=== PATIENT | male | born 1980 | race Caucasian/White ===

== ENCOUNTER 2016-12-01 07:07 | Inpatient (IN) ==
[2016-12-01] MEDS ORDERED: NALOXONE 0.4 MG/ML VIAL ONE (07:35)
[2016-12-01] MEDS ORDERED: FLUMAZENIL 0.5 MG/5 ML VIAL IV ONE (07:36)
[2016-12-01] MEDS ORDERED: SODIUM CHLORIDE 0.9% 1,000 ML IV STA ×2 (07:42→10:21)
[2016-12-01] MEDS ORDERED: NALOXONE 0.4 MG/ML VIAL IV STA (07:44)
[2016-12-01] MEDS ORDERED: FLUMAZENIL 1 MG/10 ML VIAL IV ONE (07:44)
[2016-12-01 07:52] LABS: Basophils # 0.1 10*3/uL (0.0-0.2); Basophils % 1.3 % (0.0-0.8); Eosinophils # 0.2 10*3/uL (0.0-0.87); Eosinophils % 3.5 % (0.00-10.9); Hematocrit 41.2 VOL% (42.0-52.0); Hemoglobin 13.8 GM/DL (14.0-18.0); Immature Granulocytes % 0.3 %; Immature Granulocytes Absolute 0.02 #; Lymphocytes # 2.8 10*3/uL (1.4-4.0); Lymphocytes % 44.7 % (21.2-54.2); Mean Corpuscular HGB Conc 33.5 GM/DL (32-36); Mean Corpuscular Hemoglobin 30 PG (27-34); Mean Corpuscular Volume 90.4 FL (87-102); Mean Platelet Volume 9.6 FL (9.6-12.0); Monocytes # 0.8 10*3/uL (0.11-0.8); Monocytes % 12.1 % (1.7-12.7); Neutrophils # 2.4 10*3/uL (1.4-7.4); Neutrophils % 38.1 % (38.7-73.9); Platelet Count 305 T/CUMM (130-400); Red Blood Count 4.56 MC/CUMM (3.8-5.5); Red Cell Distribution Width 13.8 % (9.3-17.3); White Blood Count 6.3 T/CUMM (4-12)
--- NOTE | 2016-12-01 08:05 | CT Report ---
History: Decreased level of consciousness Date: 12/01/2016 Study: CT head without contrast Comparison exam: July 01, [address] sections were obtained through the brain without contrast. The ventricles are midline in position without evidence of hydrocephalus. There is no mass or area of parenchymal hemorrhage. There is no gross CT evidence of acute cortical stroke. There is no extra-axial hematoma. The sinuses are generally clear. There is no acute skull fracture. There is remote fracture deformity of the right zygomatic arch as before. Impression: No acute intracranial process. No significant interval change This CT exam was performed using one or more the following dose reduction techniques: Automated exposure control, adjustment of the MA and/or KV according to patient size, or use of iterative reconstruction technique. PROCEDURE INTERPRETED AT [facility] DEPARTMENT OF RADIOLOGY Final Report Signed by: Dr. Lena Chavez
[2016-12-01 08:19] LABS: Eosinophils 7 % (0-10); Hypochromasia 1+; Lymphocytes 42 % (20-55); Microcytosis Slight; Segmented Neutrophils 43 % (50-85); Total Cells Counted 100
[2016-12-01 08:20] LABS: Platelet Estimate Normal
[2016-12-01 08:21] LABS: Alanine Aminotransferase 41 U/L (16-61); Albumin 3.6 G/DL (3.4-5.0); Alkaline Phosphatase 87 U/L (45-117); Aspartate Amino Transferase 42 U/L (0-37); Bilirubin,Total < 0.39 MG/DL (0.2-1.0); Blood Urea Nitrogen 11 MG/DL (7-18); Calcium 8.6 MG/DL (8.5-10.1); Glucose 78 MG/DL (74-106); Osmolality,Calculated 287.6 MOS/KG (273-304); Potassium 4.3 MMOL/L (3.5-5.1); Sodium 146 MMOL/L (136-145); Total Protein 6.5 G/DL (6.4-8.3)
--- NOTE | 2016-12-01 08:29 | EKG Report ---
Stationary ECG Study [facility] ER Test Date: 12/01/2016 8:11:54 AM Pat Name: PORTIA WEISS Department: Room: Gender: M Director Mission: : 1980 Requested by: Juan Jose Broderick Order Number: [id number] Reading MD: SHARONDA KIM Intervals [place] Rate: 73 P: 52 ND: 149 QRS: 82 QRSD: 88 T: 72 QT: 385 QTc: 411 Interpretive Statements SINUS RHYTHM ST ELEVATION, PROBABLY EARLY REPOLARIZATION MODERATE ST DEPRESSION Electronically Signed On 12-05-16 06:24:15 CDT by SHARONDA KIM [email or web address]
[2016-12-01 08:32] LABS: Lactic Acid 1.1 MMOL/L (0.4-2.0)
[2016-12-01 08:39] LABS: Barbiturates Screen,Urine Positive (Negative); Benzodiazepines Screen,Urine Negative (Negative); Cannabinoid Screen,Urine Positive (Negative); Opiate Screen,Urine Negative (Negative); Phencyclidine Screen,Urine Negative (Negative)
--- NOTE | 2016-12-01 08:50 | Emergency Department Note ---
Yang Osorio Rolonda, am scribing for, and in the presence of, Juan Jose Toledo MD 08:01. Tre Osorio Phillip K, MD, personally performed the services described in this documentation, ascribed by Nathan Soria in my presence, and it is both accurate and complete 850 . 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 Pt has a PMHx of Sz and Anxiety disorder. Nurses states that pt was behind on his Phenobarbital which he takes for Sz and was trying to catch up on the missed doses. Multiple empty bottles were noted on the scene. Pt was unresponsive during exam. No other history available. Onset (ago): minute(s) Consistency: constant Severity: severe Severity scale (1-10): 10 Allergies/Adverse Reactions: Allergies Allergy/AdvReac Type Severity Reaction Status Date / Time No Known Allergies Allergy Verified 11/09/16 04:23 Home Medications: Home Medications Medication Instructions Recorded Confirmed Type Citalopram [CeleXA] 20 mg PO DAILY 11/09/16 11/22/16 History HYDROcodone/ACETAMIN 5-325 [[place] 1 tablet PO BID 11/09/16 11/22/16 History 5-325] diazePAM [Diazepam] 2 mg PO BID 11/09/16 11/22/16 History PHENobarbital [Phenobarbital] 64.8 mg PO TID #90 tablet 11/22/16 12/01/16 Rx Review of System - Review of System ROS unobtainable: due to mental status Medical,Surgical,& Family Hx - Medical History Psychological: History of: Anxiety Disorders Neurology: History of: Seizures - Social History Smoking Status: Current every day smoker Exam Vital Signs: Vital Signs Temperature 98.6 F 12/02/16 04:00 Pulse Rate 76 12/02/16 06:00 Respiratory Rate 16 12/02/16 06:00 Blood Pressure 100/63 12/02/16 06:00 O2 Sat by Pulse Oximetry 99 12/02/16 06:00 - General Exam limited due to: ALOC General appearance: lethargic - Head Head exam: Present: atraumatic - Eye Eye exam: Present: normal appearance. Absent: PERRL (Pinpoint pupils.) - ENT ENT exam: Present: normal exam - Neck Neck exam: Present: normal inspection - Chest Chest inspection: Present: normal inspection - Respiratory Respiratory exam: Present: normal lung sounds bilaterally. Absent: rales, respiratory distress - Cardiovascular Cardiovascular exam: Present: regular rate, normal rhythm, normal heart sounds - Abdominal Exam Abdominal exam: Present: soft, normal bowel sounds. Absent: tenderness - Rectal Exam Rectal exam: Present: deferred - Extremities Exam Extremities exam: Present: normal inspection - Back Exam Back exam: Present: normal inspection - Neurological Exam Neurological exam: Absent: alert - Psychiatric Psychiatric exam: Present: depressed - Skin Skin exam: Present: warm, dry Course Course Narrative: Patient was given Narcan and Romazicon on arrival to the ED without any improvement in his lethargy. He was also given a liter of fluids and only a second liter of fluids at the present time. Patient will be admitted to the hospitalist. Patient's phenobarbital level is extremely elevated. Results - Labs CBC & BMP: 12/02/16 03:23 12/02/16 03:23 Lab Results: I have reviewed the patients labs Labs: Laboratory Tests 12/01/16 07:43 WBC 6.3 RBC 4.56 Hgb 13.8 L Hct 41.2 L Neut % (Auto) 38.1 L Baso % (Auto) 1.3 H Laboratory Tests 12/01/16 12/01/16 12/01/16 07:43 07:43 07:43 Total Counted 100 Segmented Neutrophils 43 L Basophils 1.0 H Sodium 146 H Potassium 4.3 Chloride 111 H Carbon Dioxide 33 H BUN 11 GFR Calculation 91 Glucose 78 AST 42 H Ammonia Urine Opiates Screen Acetaminophen < 2.0 L Ur Barbiturates Screen Ur Phencyclidine Scrn U Amphetamine/Methamph Phenobarbital U Benzodiazepines Scrn U Cocaine Metab Screen U Cannabinoids Screen Serum Alcohol < 15 L 12/01/16 12/01/16 12/01/16 07:43 07:43 07:43 Total Counted Segmented Neutrophils Basophils Sodium Potassium Chloride Carbon Dioxide BUN GFR Calculation Glucose AST Ammonia 43 H Urine Opiates Screen Negative Acetaminophen Ur Barbiturates Screen Positive H Ur Phencyclidine Scrn Negative U Amphetamine/Methamph Positive H Phenobarbital 101.8 H* U Benzodiazepines Scrn Negative U Cocaine Metab Screen Negative U Cannabinoids Screen Positive H Serum Alcohol - Diagnostic Findings Procedure: CT: report reviewed by me (Head/Brain: No acute intracranial process. No significant interval change.) Disposition Clinical Impression: Phenobarbital overdose of undetermined intent Case discussed with: patient Disposition: Still a Patient Condition: Critical
--- NOTE | 2016-12-01 09:24 | Hospitalist History & Physical ---
Assessment and Plan (1) Phenobarbital overdose of undetermined intent Status: Acute Assessment and plan: Admit to ICU. Phenobarb level 101.8. Pt given narcan and romazicon in the ED. Drug screen also positive for cannabinoids and meth. UA pending. Give IVF hydration. Consult neuro. Monitor closely. Current Visit: Yes (2) Seizure disorder Status: Acute Assessment and plan: Admit to ICU. Consult neuro. Current Visit: Yes (3) Anxiety Status: Acute Current Visit: Yes History of Present Illness Chief complaint: overdose History of present illness: Mr. De La Rosa is a 36 year old white male patient with a history of seizures, drug abuse, and anxiety disorder who reports to the ED via EMS for further evaluation of phenobarbital overdose with an onset minutes prior to arrival. Patient was recently seen in ED on 11/22 for treatment of seizures. At that time , patient reported being out of his medication for one week. He was prescribed 90 tablets. Per ER nurse, today patient was found on the side of the road in his car very lethargic. Multiple empty bottles were noted on the scene. It is unknown whether patient meant to take multiple pills or whether patient was medicating to make up for previous doses and accidentally overdose. There was another person at the scene, but the person is not present in the ED. Notable labs obtained in the ED reveal a phenobarbital level of 101.8 and ammonia of 42. Head CT is negative. Pt is unresponsive during the examination therefore further history is unable to be obtained. Pt's case has been discussed with ER physician Dr. Toledo and hospitalist Dr. Medina. Pt has been accepted onto our service and will be admitted to the ICU for further evaluation. Home meds have been reviewed but they are unable to be reconciled at this point. Home Medications Medication Instructions Recorded Confirmed Type Citalopram [CeleXA] 20 mg PO DAILY 11/09/16 11/22/16 History HYDROcodone/ACETAMIN 5-325 [[place] 1 tablet PO BID 11/09/16 11/22/16 History 5-325] PHENobarbital [Phenobarbital] 64.8 mg PO TID 11/09/16 11/22/16 History diazePAM [Diazepam] 2 mg PO BID 11/09/16 11/22/16 History PHENobarbital [Phenobarbital] 64.8 mg PO TID #90 tablet 11/22/16 Rx Allergies Allergy/AdvReac Type Severity Reaction Status Date / Time No Known Allergies Allergy Verified 11/09/16 04:23 Medical,Surgical,& Family Hx - Medical History Psychological: History of: Anxiety Disorders Neurology: History of: Seizures - Social History Smoking Status: Current every day smoker Frequency of Alcohol Use: None Type of Drug Use: Marijuana (positive tox screen), Methamphetamine (positive tox screen) Marital Status: Unknown Functional capacity: independent ambulation ROS unobtainable: due to mental status Exam - Constitutional Vitals: Period Temp Pulse Resp BP Sys/Bolivar Pulse Ox Last 24 Hr 97.0 F-97.0 F 69-76 20-20 90-104/60-66 97-100 General appearance: normal weight, no acute distress - Head Head exam: Present: normal inspection, normocephalic - Eye Eye exam: Absent: EOMI Pupils: Absent: RE - Respiratory Respiratory exam: Present: clear to auscultation bilaterally. Absent: wheezes - Cardiovascular Cardiovascular exam: Present: regular rate and rhythm - GI/Abdominal GI/Abdominal exam: Present: normal bowel sounds, soft - Extremities Exam Extremities exam: Present: normal capillary refill. Absent: edema - Neurological Exam Neurological exam: Present: altered, other (pt is very lethargic. unresponsive even to painful stimuli. unable to exam motor strength) - Psychiatric Psychiatric exam: Present: other (unable to assess) - Skin Skin exam: Present: normal color, warm, dry Results - Labs CBC & BMP: 12/01/16 07:43 12/01/16 07:43 Lab Results: I have reviewed the past 24 hour labs
[2016-12-01] MEDS ORDERED: ONDANSETRON 4 MG/2 ML VIAL IV PRN (10:21)
[2016-12-01] MEDS ORDERED: ALBUTEROL 2.5 MG/3 ML NEB RESP TX PRN (10:21)
[2016-12-01 11:04] LABS: ABG Base Excess -1.8 MMOL/L (-2.5-2.5); ABG HCO3 25.8 MMOL/L (20-26); ABG Oxygen Saturation 95.2 % (95-100); ABG PCO2 55.7 MM HG (35-48); ABG PH 7.284 (7.35-7.45); ABG PO2 85.9 MM HG (80-95); ABG TCO2 27.5 MMOL/L (23-27)
[2016-12-01 11:05] LABS: Allen Test Positive
[2016-12-01] MEDS: ENOXAPARIN 40 MG/0.4 ML SYRINGE SUBCUT SCH (11:49)
[2016-12-01] MEDS: SODIUM CHLORIDE 0.9% 1,000 ML IV SCH ×2 (11:51→19:56)
--- NOTE | 2016-12-01 14:02 | Neurology Consult Note ---
History of Present Illness History of present illness: 36 years old right-handed white gentleman with a history of drug abuse, seizures , liver disorder admitted the hospital with phenobarbital drug overdose. Patient is unable to provide me any history. No family is available at this time. History basically obtained from the chart. He was out of his medications a week ago and he showed up in the ER for the prescription. A prescription of 90 tablets was given to him. He had a history of suicide attempt in the past. Yesterday patient was found there was side in his car very lethargic. Multiple empty bottles were noted on the scene. It is not clear whether he meant to take multiple pills or whether the patient was medicating to make up for previous doses and after the overdose. However his urine is positive for meth and cannabinoids as well along with barbiturates. Phenobarbital level was 101.6. At the present time he is lethargic and sleeping. He is moving extremities spontaneously. It is not clear who diagnosed him with seizure disorder and who prescribes phenobarbital to him. CT of the head is unremarkable. Home Medications Medication Instructions Recorded Confirmed Type Citalopram [CeleXA] 20 mg PO DAILY 11/09/16 11/22/16 History HYDROcodone/ACETAMIN 5-325 [[place] 1 tablet PO BID 11/09/16 11/22/16 History 5-325] diazePAM [Diazepam] 2 mg PO BID 11/09/16 11/22/16 History PHENobarbital [Phenobarbital] 64.8 mg PO TID #90 tablet 11/22/16 12/01/16 Rx Allergies Allergy/AdvReac Type Severity Reaction Status Date / Time No Known Allergies Allergy Verified 11/09/16 04:23 12 point system: reviewed and no additional remarkable complaints except as stated Medical,Surgical,& Family Hx - Medical History Psychological: History of: Anxiety Disorders Neurology: History of: Seizures - Social History Smoking Status: Current every day smoker Frequency of Alcohol Use: None Type of Drug Use: Marijuana (positive tox screen), Methamphetamine (positive tox screen) Exam - Constitutional Vitals: Period Temp Pulse Resp BP Sys/Bolivar Pulse Ox Last 24 Hr 96.9 F-97.1 F 67-79 12-20 79-108/53-70 94-100 Exam: GENERAL: Patient is in no acute distress. NECK: Neck is supple. There is no JVD. No carotid bruits present. No thyroid masses. CVS: First and second heart sounds are normal. There is no S3 present. Regular rate and rhythm. RESPIRATORY: Lungs are clear to auscultation without any rales or rhonchi. ABDOMEN: Soft and non-tender. Bowel sounds are present. There is no hepatosplenomegaly. EXT: There is no palpable edema. Peripheral pulses are present. Skin: No rashes Central Nervous system: General: Obtunded/lethargic Speech: None Comprehension: None Facial expressions: Normal Cranial Nerves: Pupils are small but reactive. Doll's head eye movements are positive. No facial asymmetry seen. Motor: Bulk and Tone is normal. Strength symmetrical and moving extremities a spontaneous Sensory: Unreliable Reflexes: 1+ and symmetrical Cerebellar function: Cannot be tested Toes: Equivocal Gait: Cannot be tested Results - Labs CBC & BMP: 12/01/16 07:43 12/01/16 07:43 Assessment and Plan (1) Phenobarbital overdose of undetermined intent Status: Acute Assessment and plan: Agreed to hold off the phenobarbital Watch him closely with O2 sats Current Visit: Yes (2) Seizure disorder Status: Acute Assessment and plan: Hold off any AEDs at this time EEG Thanks for the consult Current Visit: Yes
[2016-12-02] MEDS: SODIUM CHLORIDE 0.9% 1,000 ML IV SCH ×2 (03:56→23:49)
[2016-12-02 04:16] LABS: Basophils # 0.1 10*3/uL (0.0-0.2); Basophils % 0.5 % (0.0-0.8); Eosinophils # 0.1 10*3/uL (0.0-0.87); Eosinophils % 1.4 % (0.00-10.9); Hematocrit 38.3 VOL% (42.0-52.0); Immature Granulocytes % 0.5 %; Immature Granulocytes Absolute 0.05 #; Lymphocytes # 2.4 10*3/uL (1.4-4.0); Lymphocytes % 23.9 % (21.2-54.2); Mean Corpuscular HGB Conc 33.9 GM/DL (32-36); Mean Corpuscular Hemoglobin 31 PG (27-34); Mean Platelet Volume 10.4 FL (9.6-12.0); Monocytes # 0.8 10*3/uL (0.11-0.8); Monocytes % 7.6 % (1.7-12.7); Neutrophils # 6.6 10*3/uL (1.4-7.4); Neutrophils % 66.1 % (38.7-73.9); Platelet Count 292 T/CUMM (130-400); Red Blood Count 4.21 MC/CUMM (3.8-5.5); Red Cell Distribution Width 13.9 % (9.3-17.3)
[2016-12-02 04:38] LABS: Lactic Acid 0.7 MMOL/L (0.4-2.0)
[2016-12-02 04:54] LABS: Calcium 7.9 MG/DL (8.5-10.1); Magnesium 1.7 MG/DL (1.8-2.4); Osmolality,Calculated 286.4 MOS/KG (273-304); Risk Ratio 3.39; VLDL CHOLESTEROL 25.6 MG/DL
--- NOTE | 2016-12-02 08:03 | Order Completion Report ---
See report scanned to EMR
--- NOTE | 2016-12-02 10:23 | Hospitalist Progress Note ---
Hospitalist: Subjective Interval history: 36 yo WM drug abuse, seizures, liver disorder admitted the hospital with phenobarbital drug overdose. Initially he was unarousable, but then he woke up later in the evening in ICU and informed the nurse that he intentionally took phenobarbital overdose to commit suicide. Per nursing staff he still drowsy but wakes up to eat his food and goes back to sleep. He is otherwise comfortable Exam - Constitutional Vitals: Period Temp Pulse Resp BP Sys/Bolivar Pulse Ox Last 24 Hr 96.9 F-98.6 F 68-89 12-20 79-114/46-74 94-100 Exam: General: No Acute Distress HEENT: Normocephalic, atraumatic, Extra ocular movements intact Neck: Supple, No JVD Chest: Clear to auscultation B/L CV: S1 + S2 audible without murmur, gallop or rub Abd: soft, NT, Non-distended, BS + Ext: No edema Skin: No purpura, bruising or rash Rheumatologic: No Joint deformities Neurologic: Drowsy but arousable Results - Labs CBC & BMP: 12/02/16 03:23 12/02/16 03:23 - Impressions Assessment and Plan: (1) Suicide attempt with phenobarbital overdose Status: Acute Assessment and plan: Phenobarbital levels are trending down. We have contacted social work msw to place him in inpatient psychiatric facility. He is on 1:1 watch Current Visit: Yes (2) Seizure disorder Status: Acute Assessment and plan: Holding off on AEDs at this time, monitor Current Visit: Yes Transfer to floor with 1:1 watch
[2016-12-02] MEDS: ENOXAPARIN 40 MG/0.4 ML SYRINGE SUBCUT SCH (10:48)
--- NOTE | 2016-12-02 15:01 | Neurology Progress Note ---
Neurology - PN : Subjective Interval history: Patient is much more alert and awake. Following commands. His speech is fluent. No seizures reported. Repeat phenobarb level is 98.4. He tells me that he sees Dr. Mckeon (neurology )in [facility] for seizure care. He tells me that he has tried several different AEDs but all of them give him some weird side effects. The only thing he can handle is phenobarbital. Upon questioning he said that he was trying to kill himself by overdosing on phenobabr. He states he is very depressed and very unhappy with his life. As far his seizure is concerned, he wants to continue only phenobarbital. He does not even want to try any other medications. Exam (Progress Note) - Constitutional Vitals: Period Temp Pulse Resp BP Sys/Bolivar Pulse Ox Last 24 Hr 97.5 F-98.7 F 76-95 12-20 92-114/46-74 94-100 Exam: GENERAL: Patient is in no acute distress. NECK: Neck is supple. There is no JVD. No carotid bruits present. No thyroid masses. CVS: First and second heart sounds are normal. There is no S3 present. Regular rate and rhythm. RESPIRATORY: Lungs are clear to auscultation without any rales or rhonchi. ABDOMEN: Soft and non-tender. Bowel sounds are present. There is no hepatosplenomegaly. EXT: There is no palpable edema. Peripheral pulses are present. Skin: No rashes Central Nervous system: General: Alert, awake and Oriented x 3 Speech: Fluent Comprehension: Intact and normal Facial expressions: Normal Cranial Nerves: CN1/Olfactory: Normal CN II/ Optic: Normal, Visual Nazario unreliable CN III, and : RE & EOMI CN V: Normal & intact CN VII: face is symmetric CNVIII: Normal CN XI/X/XI/XII: Intact and Normal Motor: Bulk and Tone is normal. Strength in the right 5/5 Strength in the left 5/5 Sensory: Grossly intact for all the modalities of PP, LT and temp sense Reflexes: 1+ and symmetrical Cerebellar function: Normal finger to nose and heel to lin testing. Toes: Equivocal Gait: Not tested Results - Labs CBC & BMP: 12/02/16 03:23 12/02/16 03:23 Assessment and Plan (1) Phenobarbital overdose of undetermined intent Status: Acute Assessment and plan: Continue to hold off to phenobarbital We will resume it once levels are therapeutic Current Visit: Yes (2) Seizure disorder Status: Acute Assessment and plan: As above Current Visit: Yes (3) Suicide attempt Status: Acute Assessment and plan: He needs to go to [facility] from here for further evaluation and treatment. Current Visit: Yes
[2016-12-02] MEDS: TAMSULOSIN 0.4 MG CAPSULE PO SCH (20:48)
[2016-12-03 05:16] LABS: Basophils # 0.1 10*3/uL (0.0-0.2); Basophils % 0.8 % (0.0-0.8); Eosinophils # 0.2 10*3/uL (0.0-0.87); Eosinophils % 1.9 % (0.00-10.9); Hematocrit 37.6 VOL% (42.0-52.0); Hemoglobin 12.5 GM/DL (14.0-18.0); Immature Granulocytes % 0.6 %; Immature Granulocytes Absolute 0.05 #; Lymphocytes # 2.8 10*3/uL (1.4-4.0); Lymphocytes % 32.2 % (21.2-54.2); Mean Corpuscular HGB Conc 33.2 GM/DL (32-36); Mean Corpuscular Hemoglobin 30 PG (27-34); Mean Corpuscular Volume 90.4 FL (87-102); Mean Platelet Volume 9.9 FL (9.6-12.0); Monocytes # 0.8 10*3/uL (0.11-0.8); Monocytes % 8.8 % (1.7-12.7); Neutrophils # 4.8 10*3/uL (1.4-7.4); Neutrophils % 55.7 % (38.7-73.9); Platelet Count 261 T/CUMM (130-400); Red Blood Count 4.16 MC/CUMM (3.8-5.5); Red Cell Distribution Width 13.6 % (9.3-17.3); White Blood Count 8.5 T/CUMM (4-12)
[2016-12-03 06:45] LABS: Calcium 8.3 MG/DL (8.5-10.1); Osmolality,Calculated 285.6 MOS/KG (273-304); Potassium 4.1 MMOL/L (3.5-5.1)
[2016-12-03] MEDS: CITALOPRAM 20 MG TABLET PO SCH (08:25)
[2016-12-03] MEDS: ENOXAPARIN 40 MG/0.4 ML SYRINGE SUBCUT SCH (08:25)
--- NOTE | 2016-12-03 09:30 | Neurology Progress Note ---
Neurology - PN : Subjective Interval history: Patient seems to be doing better. No new problems reported. Today's phenobarbital level is pending. [place] has evaluated him Exam (Progress Note) - Constitutional Vitals: Period Temp Pulse Resp BP Sys/Bolivar Pulse Ox Last 24 Hr 96.6 F-98.7 F 73-99 15-22 102-114/54-70 97-100 Exam: GENERAL: Patient is in no acute distress. NECK: Neck is supple. There is no JVD. No carotid bruits present. No thyroid masses. CVS: First and second heart sounds are normal. There is no S3 present. Regular rate and rhythm. RESPIRATORY: Lungs are clear to auscultation without any rales or rhonchi. ABDOMEN: Soft and non-tender. Bowel sounds are present. There is no hepatosplenomegaly. EXT: There is no palpable edema. Peripheral pulses are present. Skin: No rashes Central Nervous system: General: Alert, awake and Oriented x 3 Speech: Fluent Comprehension: Intact and normal Facial expressions: Normal Cranial Nerves: CN1/Olfactory: Normal CN II/ Optic: Normal, Visual Nazario unreliable CN III, and : RE & EOMI CN V: Normal & intact CN VII: face is symmetric CNVIII: Normal CN XI/X/XI/XII: Intact and Normal Motor: Bulk and Tone is normal. Strength in the right 5/5 Strength in the left 5/5 Sensory: Grossly intact for all the modalities of PP, LT and temp sense Reflexes: 1+ and symmetrical Cerebellar function: Normal finger to nose and heel to lin testing. Toes: Equivocal Gait: Not tested Results - Labs CBC & BMP: 12/03/16 04:30 12/03/16 04:30 Assessment and Plan (1) Phenobarbital overdose of undetermined intent Status: Acute Assessment and plan: Continue to hold off to phenobarbital Review phenobarbital once her levels are therapeutic between 15 and 40 Current Visit: Yes (2) Seizure disorder Status: Acute Assessment and plan: As above Current Visit: Yes (3) Suicide attempt Status: Acute Assessment and plan: He needs to go to [facility] from here for further evaluation and treatment. Sign off please call as needed Current Visit: Yes
--- NOTE | 2016-12-03 09:54 | Physician Query Form ---
CLICK EDIT DOCUMENT TO SELECT QUERY ANSWER --> OK --> SIGN Verna Macaky RN, CCDS Certified Clinical Director Of Group Sales W) [phone] (f) [phone] [email or web address] PROVIDERS: Make your selection(s) from the choices in EACH section by typing an "x" and enter comments in the comment section. Please use your independent medical judgment in providing your response. This request does not imply that any particular answer is desired or expected. CLINICAL INDICATORS: (Providers should not edit this section) The medical record indicates that the patient was admitted with OD of Phenobarbital, Suicide attempt, "lethargic", "Unresponsive even to painful stimuli", "Unarousable" and the patient is being referred to [place]. ACUITY: ( x) Acute ( ) Acute on Chronic ( ) Chronic ( ) Clinically unable to determine NATURE: ( ) Delirium due to general medical condition ( ) Dementia ( ) Encephalopathy ( x) Toxic encephalopathy ( ) Metabolic encephalopathy ( ) Unconscious ( ) Transient level of awareness ( ) Comatose ( ) Locked-in State ( ) Persistent Vegetative State ( ) Other, please specify: ( ) Clinically unable to determine Please indicate the underlying cause of the altered mental status (CHECK ALL THAT APPLY): ( ) Baseline dementia ( ) Alzheimer's disease ( ) Parkinson's disease ( ) Lewy body dementia ( ) Acute stroke ( ) Late effect of stroke ( ) Reactive (from emotional stress, psychological trauma) ( x) Due to narcotics/other drugs ( ) Post procedural delirium ( ) Transient ischemic attack ( ) Generalized cerebral edema ( ) Normal pressure hydrocephalus ( ) Psychiatric illness ( ) Other, please specify: ( ) Clinically unable to determine Please indicate if there is an infection, sepsis, dehydration or specific organ failure that is causing the dementia. Be specific with clarifying the relationship between that process and the mental status change. COMMENTS: PLEASE ALSO DOCUMENT RESPONSE IN PROGRESS NOTES AND/OR DISCHARGE SUMMARY Use of terms such as suspected, likely, or probable (associated with a specific diagnosis that is being evaluated, monitored, or treated as if it exists) are acceptable and can be restated in the discharge summary if not ruled out. MTDD
[2016-12-03] MEDS: SODIUM CHLORIDE 0.9% 1,000 ML IV SCH ×3 (15:08→23:09)
--- NOTE | 2016-12-03 17:25 | Hospitalist Progress Note ---
Assessment and Plan (1) Phenobarbital overdose of undetermined intent Status: Acute Assessment and plan: Neurology assisting Continue to hold Current Visit: Yes (2) Seizure disorder Status: Acute Current Visit: Yes (3) Anxiety Status: Acute Current Visit: Yes (4) Suicide attempt Status: Acute Assessment and plan: [facility] Current Visit: Yes Hospitalist: Subjective Interval history: No acute events overnight. Patient feels well today. He is very much amendable to going to [place]. Exam - Constitutional Vitals: Period Temp Pulse Resp BP Sys/Bolivar Pulse Ox Last 24 Hr 96.6 F-98.4 F 70-94 16-22 103-114/57-69 97-99 Results - Labs CBC & BMP: 12/03/16 04:30 12/03/16 04:30
[2016-12-03] MEDS: TAMSULOSIN 0.4 MG CAPSULE PO SCH (21:01)
[2016-12-04] MEDS: ENOXAPARIN 40 MG/0.4 ML SYRINGE SUBCUT SCH (08:20)
[2016-12-04] MEDS: CITALOPRAM 20 MG TABLET PO SCH (08:20)
[2016-12-04] MEDS: SODIUM CHLORIDE 0.9% 1,000 ML IV SCH ×2 (08:23→17:32)
--- NOTE | 2016-12-04 11:02 | Hospitalist Progress Note ---
<Betzy Foote - Last Filed: 12/04/16 10:56> Assessment and Plan (1) Suicide attempt Status: Acute Assessment and plan: [place] has evaluated. Current Visit: Yes (2) Phenobarbital overdose of undetermined intent Status: Acute Assessment and plan: Admit to ICU. Phenobarb level 101.8. Pt given narcan and romazicon in the ED. Drug screen also positive for cannabinoids and meth. UA pending. Give IVF hydration. Consult neuro. Monitor closely. 12/04 Pt. on med surg unit now. Condition much improved. [place] has assessed. Patient is agreeable to receiving help. Neuro has signed off. Continue IVF. Current Visit: Yes (3) Seizure disorder Status: Acute Assessment and plan: Admit to ICU. Consult neuro. 12/04 Neuro has signed off. Pt. has not had any seizure activity. Current Visit: Yes (4) Anxiety Status: Acute Current Visit: Yes Hospitalist: Subjective Interval history: Patient seen and examined this morning with significant other and sitter at bedside. Labs and chart reviewed. Pt. alert and oriented with no complaints. No changes overnight. Pt. feels well and understands that he needs help. He has spoken to someone at [facility]. Phenobarbital level 61.2 today. Neurology has signed off. We will continue to monitor. Exam - Constitutional Vitals: Period Temp Pulse Resp BP Sys/[place] Pulse Ox Last 24 Hr 96.9 F-98.8 F 54-86 18-20 99-126/55-71 95-98 General appearance: normal weight, no acute distress - Head Head exam: Present: normal inspection, normocephalic - Eye Eye exam: Present: EOMI Pupils: Present: RE - ENT ENT exam: Present: normal exam - Neck Neck exam: Present: normal inspection - Respiratory Respiratory exam: Present: clear to auscultation bilaterally. Absent: wheezes - Cardiovascular Cardiovascular exam: Present: regular rate and rhythm - GI/Abdominal GI/Abdominal exam: Present: normal bowel sounds, soft. Absent: tenderness - Extremities Exam Extremities exam: Present: normal inspection, normal capillary refill, full ROM , edema - Neurological Exam Neurological exam: Present: alert, oriented X3 - Psychiatric Psychiatric exam: Present: normal affect, normal mood - Skin Skin exam: Present: normal color, warm, dry Results - Labs CBC & BMP: 12/03/16 04:30 12/03/16 04:30 Lab Results: I have reviewed the past 24 hour labs <Tierney Gillis - Last Filed: 12/04/16 14:27> Assessment and Plan (1) Phenobarbital overdose of undetermined intent Status: Acute Current Visit: Yes (2) Seizure disorder Status: Acute Current Visit: Yes (3) Anxiety Status: Acute Current Visit: Yes (4) Suicide attempt Status: Acute Current Visit: Yes Hospitalist: Subjective Interval history: Patient seen and examined independently of RELEASE OF INFORMATION SPECIALIST Foote, agree with assessment and plan as documented. Phenobarbital level continues to trend down. Exam - Constitutional Vitals: Period Temp Pulse Resp BP Sys/[place]ar Pulse Ox Last 24 Hr 96.9 F-98.8 F 54-86 18-20 99-126/55-71 95-98 Results - Labs CBC & BMP: 12/03/16 04:30 12/03/16 04:30
[2016-12-04] MEDS: TAMSULOSIN 0.4 MG CAPSULE PO SCH (21:20)
[2016-12-04] MEDS: NICOTINE 21 MG/24 HR PATCH TRANSDERM PRN (22:05)
[2016-12-05] MEDS: SODIUM CHLORIDE 0.9% 1,000 ML IV SCH ×2 (07:22→08:57)
[2016-12-05] MEDS: CITALOPRAM 20 MG TABLET PO SCH (08:53)
[2016-12-05] MEDS: ENOXAPARIN 40 MG/0.4 ML SYRINGE SUBCUT SCH (08:53)
--- NOTE | 2016-12-05 15:40 | Hospitalist Progress Note ---
Assessment and Plan (1) Phenobarbital overdose of undetermined intent Status: Acute Assessment and plan: Neurology signed off Phenobarbital level is 48.3 Should be able to restart tomorrow Current Visit: Yes (2) Seizure disorder Status: Acute Current Visit: Yes (3) Anxiety Status: Acute Current Visit: Yes (4) Suicide attempt Status: Acute Assessment and plan: Working on placement Current Visit: Yes Hospitalist: Subjective Interval history: No acute events overnight. Patient without complaints this afternoon. Working on placement to a psych unit. Exam - Constitutional Vitals: Period Temp Pulse Resp BP Sys/[place]ar Pulse Ox Last 24 Hr 97.1 F-97.9 F 68-93 20-22 100-127/55-70 94-98 General appearance: normal weight - Head Head exam: Present: normocephalic, atraumatic - Eye Eye exam: Present: EOMI Pupils: Present: RE - ENT ENT exam: Present: normal exam - Neck Neck exam: Present: normal inspection - Respiratory Respiratory exam: Present: clear to auscultation bilaterally. Absent: rhonchi, wheezes - Cardiovascular Cardiovascular exam: Present: regular rate and rhythm - GI/Abdominal GI/Abdominal exam: Present: normal bowel sounds, soft. Absent: tenderness, rebound - Extremities Exam Extremities exam: Present: normal inspection - Back Exam Back exam: Present: normal inspection - Neurological Exam Neurological exam: Present: alert, oriented X3 - Psychiatric Psychiatric exam: Present: normal affect, normal mood - Skin Skin exam: Present: warm, intact Results - Labs CBC & BMP: 12/03/16 04:30 12/03/16 04:30
[2016-12-05] MEDS: TAMSULOSIN 0.4 MG CAPSULE PO SCH (21:50)
[2016-12-05] MEDS: NICOTINE 21 MG/24 HR PATCH TRANSDERM PRN (21:50)
--- NOTE | 2016-12-06 10:51 | Hospitalist Progress Note ---
<Betzy Foote - Last Filed: 12/06/16 10:48> Assessment and Plan (1) Suicide attempt Status: Acute Assessment and plan: Working on placement to psychiatric facility. Current Visit: Yes (2) Phenobarbital overdose of undetermined intent Status: Acute Assessment and plan: Admit to ICU. Phenobarb level 101.8. Pt given narcan and romazicon in the ED. Drug screen also positive for cannabinoids and meth. UA pending. Give IVF hydration. Consult neuro. Monitor closely. 12/04 Pt. on med surg unit now. Condition much improved. [place] has assessed. Patient is agreeable to receiving help. Neuro has signed off. Continue IVF. 12/06 neurology has signed off. Phenobarbital level is 41.4 today. Recheck level in a.m. should be able to start tomorrow. Current Visit: Yes (3) Seizure disorder Status: Acute Current Visit: Yes (4) Anxiety Status: Acute Current Visit: Yes Hospitalist: Subjective Interval history: Patient seen and examined this morning. Sitter present at the bedside. No acute changes noted overnight. Patient in no apparent distress. We are awaiting placement at a psychiatric facility. Exam - Constitutional Vitals: Period Temp Pulse Resp BP Sys/Bol[place]ar Pulse Ox Last 24 Hr 96.8 F-97.9 F 60-81 17-20 99-126/49-80 93-98 General appearance: normal weight, no acute distress - Head Head exam: Present: normal inspection, normocephalic - Eye Eye exam: Present: EOMI Pupils: Present: RE - Respiratory Respiratory exam: Present: clear to auscultation bilaterally. Absent: wheezes - Cardiovascular Cardiovascular exam: Present: regular rate and rhythm - GI/Abdominal GI/Abdominal exam: Present: normal bowel sounds, soft. Absent: tenderness - Extremities Exam Extremities exam: Present: normal capillary refill, full ROM. Absent: edema - Neurological Exam Neurological exam: Present: alert, oriented X3 - Psychiatric Psychiatric exam: Present: normal affect, normal mood - Skin Skin exam: Present: normal color, warm, dry Results - Labs CBC & BMP: 12/03/16 04:30 12/03/16 04:30 Lab Results: I have reviewed the past 24 hour labs <Tierney Gillis - Last Filed: 12/06/16 14:23> Assessment and Plan (1) Phenobarbital overdose of undetermined intent Status: Acute Current Visit: Yes (2) Seizure disorder Status: Acute Current Visit: Yes (3) Anxiety Status: Acute Current Visit: Yes (4) Suicide attempt Status: Acute Current Visit: Yes Hospitalist: Subjective Interval history: Patient seen and examined independently of EXPORT SALES ASSISTANT Foote, agree with assessment and plan as documented. Waiting on placement. Phenobarbital level continues to decrease. Exam - Constitutional Vitals: Period Temp Pulse Resp BP Sys/Bol[place]ar Pulse Ox Last 24 Hr 96.8 F-97.8 F 60-76 17-20 94-126/49-80 93-98 Results - Labs CBC & BMP: 12/03/16 04:30 12/03/16 04:30
[2016-12-06] MEDS: ENOXAPARIN 40 MG/0.4 ML SYRINGE SUBCUT SCH (11:34)
[2016-12-06] MEDS: NICOTINE 21 MG/24 HR PATCH TRANSDERM PRN (11:35)
[2016-12-06] MEDS: CITALOPRAM 20 MG TABLET PO SCH (11:36)
[2016-12-06] MEDS: ACETAMINOPHEN 325 MG TABLET PO PRN ×2 (12:30→19:39)
[2016-12-06] MEDS: TAMSULOSIN 0.4 MG CAPSULE PO SCH (20:36)
[2016-12-07] MEDS: ENOXAPARIN 40 MG/0.4 ML SYRINGE SUBCUT SCH (09:37)
[2016-12-07] MEDS: CITALOPRAM 20 MG TABLET PO SCH (09:37)
[2016-12-07] MEDS: NICOTINE 21 MG/24 HR PATCH TRANSDERM PRN (11:02)
--- NOTE | 2016-12-07 15:47 | Hospitalist Progress Note ---
Assessment and Plan (1) Phenobarbital overdose of undetermined intent Status: Acute Assessment and plan: Neurology signed off Phenobarbital level is 36 Will restart tomorrow Current Visit: Yes (2) Seizure disorder Status: Acute Current Visit: Yes (3) Anxiety Status: Acute Current Visit: Yes (4) Suicide attempt Status: Acute Assessment and plan: Working on placement Current Visit: Yes Hospitalist: Subjective Interval history: No acute events overnight. Patient without complaints. Waiting on psych placement. Exam - Constitutional Vitals: Period Temp Pulse Resp BP Sys/B[place]ar Pulse Ox Last 24 Hr 97.2 F-98.9 F 51-69 16-20 89-119/51-69 96-99 General appearance: normal weight - Head Head exam: Present: normocephalic, atraumatic - Eye Eye exam: Present: EOMI Pupils: Present: RE - ENT ENT exam: Present: normal exam - Neck Neck exam: Present: normal inspection - Respiratory Respiratory exam: Present: clear to auscultation bilaterally. Absent: rhonchi, wheezes - Cardiovascular Cardiovascular exam: Present: regular rate and rhythm - GI/Abdominal GI/Abdominal exam: Present: normal bowel sounds, soft. Absent: tenderness, rebound - Extremities Exam Extremities exam: Present: normal inspection - Back Exam Back exam: Present: normal inspection - Neurological Exam Neurological exam: Present: alert, oriented X3 - Psychiatric Psychiatric exam: Present: normal affect, normal mood - Skin Skin exam: Present: warm, intact Results - Labs CBC & BMP: 12/03/16 04:30 12/03/16 04:30
[2016-12-07] MEDS: TAMSULOSIN 0.4 MG CAPSULE PO SCH (20:09)
[2016-12-08] MEDS: ENOXAPARIN 40 MG/0.4 ML SYRINGE SUBCUT SCH (08:23)
[2016-12-08] MEDS: CITALOPRAM 20 MG TABLET PO SCH (08:23)
[2016-12-08] MEDS: NICOTINE 21 MG/24 HR PATCH TRANSDERM PRN (08:27)
[2016-12-08] MEDS ORDERED: PHENobarbital 30 MG TABLET PO SCH (09:00)
[2016-12-08] MEDS: ACETAMINOPHEN 325 MG TABLET PO PRN (09:44)
[2016-12-08 12:05] VITALS: BP 107/63
--- NOTE | 2016-12-08 13:35 | Discharge Summary ---
<Jessica Sureshda - Last Filed: 12/08/16 15:09> Hospital Course - Hospital Course Hospital Course: This is a 36-year-old male that presented to the ED at [facility] on the morning of December 01, 2016 for the evaluation of drug overdose. The patient has a medical history significant for seizure disorder, polysubstance abuse, anxiety disorder, and current nicotine use. No surgical history was reported none available at the time of ED presentation. Apparently , the patient was discovered on the side of the road in his car was noted to be very lethargic. At the time of ED arrival, multiple medication bottles were noted on the scene. The patient was subsequently transferred to [facility] for further evaluation.The patient was assessed at the time of ED presentation. The patient was noted to be grossly lethargic. Labs were obtained which were significant for phenobarbital level of 101.8 I am ammonia level at 42. CT head was essentially unremarkable for the presence of any acute intracranial processes. The patient was subsequently admitted to the hospitalist service for continuation of care. Due to the severity of the patient's presenting symptoms, a neurology consultation was requested to evaluate and assist during the clinical encounter. The patient was seen by neurology and recommendations were given. Aggressive rehydration was initiated and neurological monitoring was performed. The patient's condition gradually improved. The patient was subsequently transferred from the critical care setting to the general medical surgical floor on December 03, 2016. The patient's antiseizure medications were resumed and no reports of seizure activity was reported. The patient condition continued to improve. The patient was evaluated by [facility] and deemed an appropriate candidate for outpatient follow-up. The patient's condition is stable. He has not experienced any significant overnight events. Today, we feel that he is indeed appropriate for discharge to follow-up with his primary care physician as indicated. The patient has been instructed to follow-up with [facility] as directed. Discharge Plan - Discharge Data Disposition: Disch To Home/Self Care - Discharge Medications Continue Citalopram [CeleXA] 20 mg PO DAILY HYDROcodone/ACETAMIN 5-325 [[place] 5-325] 1 tablet PO BID diazePAM [Diazepam] 2 mg PO BID PHENobarbital [Phenobarbital] 64.8 mg PO TID #90 tablet - Follow Up or Referral - Forms/Instructions Exam - Constitutional Vitals: Period Temp Pulse Resp BP Sys/Bolivar Pulse Ox Last 24 Hr 96.9 F-98.2 F 56-68 16-20 100-114/54-73 95-99 Discharge Results Labs on day of discharge: Labs from last 24 hours 12/08/16 05:51 Phenobarbital 27.1 DS: Provider Date of admission: 12/01/16 08:50 Primary care physician: . No PCP Attending physician on admission: Evelyn Medina MD Consults: 12/01/16 10:21 Consult to Physician [CONS] Routine Comment: phenobarbital overdose Consulting Provider: Andrew Sehth Consulting Provider Notified: Yes Consult to Specialist Group: Neurology Person Notified: OSKAR Date Notified: 12/01/16 Time Notified: 12:45 12/01/16 16:33 Consult to Case Mgmt/Social Srvs [CONS] Routine Reason for Case Mgmt/Social Srvs: Psychiatric Management Consult Comment: attempted suicide Discharging clinician: Curt Suresh CNP <Tierney Gillis - Last Filed: 12/08/16 17:10> Hospital Course - Time spent with patient Time with patient DS: Less than 30 minutes Diagnosis - Discharge Diagnosis (1) Phenobarbital overdose of undetermined intent Status: Resolved (2) Seizure disorder Status: Chronic (3) Anxiety Status: Chronic (4) Suicide attempt Status: Resolved Discharge Plan - Discharge Data Condition at Discharge: Stable Discharge Diet: advance to your usual diet Activity: increase activity as tolerated Hygiene: no restrictions Weight Bearing at Discharge: weight bear as tolerated Driving: no restrictions Contact your physician if you experience:: Shortness of breath Exam - Constitutional General appearance: normal weight - Head Head exam: Present: normocephalic, atraumatic - Eye Eye exam: Present: EOMI Pupils: Present: RE - ENT ENT exam: Present: normal exam - Neck Neck exam: Present: normal inspection - Respiratory Respiratory exam: Present: clear to auscultation bilaterally. Absent: rhonchi, wheezes - Cardiovascular Cardiovascular exam: Present: regular rate and rhythm - GI/Abdominal GI/Abdominal exam: Present: normal bowel sounds, soft. Absent: tenderness, rebound - Extremities Exam Extremities exam: Present: normal inspection - Back Exam Back exam: Present: normal inspection - Neurological Exam Neurological exam: Present: alert, oriented X3 - Psychiatric Psychiatric exam: Present: normal affect, normal mood - Skin Skin exam: Present: warm, intact
== END 2016-12-08 14:49 | disposition home or self-care (01) | DRG 917 ==
LOC: EDUNIT# → EDBD → N.ED 07:07 → N.EDINP 08:50 → SUATTDRO 08:50 → N.ICU 10:00 → N.2E 12-02 10:49
PROVIDERS: ADMIT Hospitalist; ATTEND Internal Medicine